=== PATIENT | female | born 1945 | race American Indian/Alaskan Native ===

== ENCOUNTER 2017-10-12 21:13 | Observation (INO) | payer MEDICARE, BC ==
--- NOTE | 2017-10-12 23:37 | C.PDOC ---
History Of Present Illness Patient presents to the ER with a complaint of a burning epigastric pain and cough that began yesterday. Patient is currently speaking in complete sentences ; denies nausea, vomiting, chest pain, or SOB. Time Seen by Provider: 10/12/17 23:36 Chief Complaint (Nursing): Abdominal Pain History Per: Patient History/Exam Limitations: no limitations Onset/Duration Of Symptoms: Days Current Symptoms Are (Timing): Still Present Severity: Mild Pain Scale Rating Of: 4 Location Of Pain/Discomfort: Epigastric Radiation Of Pain To:: None Quality Of Discomfort: Burning Associated Symptoms: denies: Nausea, Vomiting, Other (Chest pain, SOB) Exacerbating Factors: None Alleviating Factors: None Recent travel outside of the [place]: No Abnormal Vaginal Bleeding: No Past Medical History Reviewed: Historical Data, Nursing Documentation, Vital Signs Vital Signs: Last Vital Signs Temp 98.8 F 10/13/17 01:06 Pulse 94 H 10/13/17 01:06 Resp 20 10/13/17 01:06 BP 125/76 10/13/17 01:06 Pulse Ox 97 10/13/17 01:06 - Medical History PMH: Bronchitis, HTN, Hypercholesterolemia - [facility] Procedures ENDOSC POLYPECTOMY OF LG INTEST (01/12/06) Family History: States: No Known Family Hx - Social History Hx Alcohol Use: No Hx Substance Use: No - Immunization History Hx Tetanus Toxoid Vaccination: No Hx Influenza Vaccination: No Hx Pneumococcal Vaccination: No Review Of Systems Cardiovascular: Negative for: Chest Pain Respiratory: Positive for: Cough. Negative for: Shortness of Breath Gastrointestinal: Positive for: Abdominal Pain. Negative for: Nausea, Vomiting Physical Exam - Physical Exam Appears: Non-toxic Skin: Warm, Dry Head: Normacephalic Oral Mucosa: Moist Chest: Symmetrical Cardiovascular: Rhythm Regular Respiratory: No Rales, Rhonchi (At bases), No Wheezing Gastrointestinal/Abdominal: Soft, Tenderness (Epigastric), No Guarding, No Rebound Neurological/Psych: Oriented x3 ED Course And Treatment - Laboratory Results Result Diagrams: 10/12/17 23:51 10/12/17 23:51 O2 Sat by Pulse Oximetry: 97 (Room air) Pulse Ox Interpretation: Normal Progress Note: CXR, EKG, blood work, and urinalysis ordered. Pepcid and nebulizer treatment administered. Disposition Discussed With : Rick Blas Comment: accepted the pt on his service and took over the care at 1:37 AM Counseled Patient/Family Regarding: Studies Performed, Diagnosis - Disposition Disposition: HOSPITALIZED Disposition Time: 23:37 Condition: FAIR Forms: [facility] (Liberian) - Clinical Impression Clinical Impression: Chest pain - Scribe Statement The provider has reviewed the documentation as recorded by the Scribe Frankie Hou All medical record entries made by the Scribe were at my direction and personally dictated by me. I have reviewed the chart and agree that the record accurately reflects my personal performance of the history, physical exam, medical decision making, and the department course for this patient. I have also personally directed, reviewed, and agree with the discharge instructions and disposition.
[2017-10-12 23:54] LABS: BASO # 0.1 K/uL (0.0-0.2); BASO % 0.8 % (0.0-2.0); EOS # 0.3 K/uL (0.0-0.7); HEMATOCRIT 38.4 % (34.0-47.0); LYMPH # 1.6 K/uL (1.0-4.3); MEAN CORPUSCULAR HEMOGLOBIN 24.4 pg (27.0-31.0); MEAN CORPUSCULAR HGB CONC 32.5 g/dL (33.0-37.0); MEAN PLATELET VOLUME 8.5 fL (7.2-11.7); MONO # 0.5 K/uL (0.0-0.8); MONO % 5.7 % (0.0-10.0); RED CELL DISTRIBUTION WIDTH 14.6 % (11.5-14.5); WHITE BLOOD COUNT 8.1 K/uL (4.8-10.8)
[2017-10-12] MEDS ORDERED: Albuterol-Ipratrop 3 mg / 0.5 (3 ml) UD ONE ×2 (23:54→23:55)
[2017-10-13 00:09] LABS: ALB/GLOB RATIO 1.4 (1.0-2.1); ALKALINE PHOSPHATASE 94 U/L (38-126); ALT/SGPT 34 U/L (9-52); AST/SGOT 23 U/L (14-36); BILIRUBIN,TOTAL 0.9 mg/dL (0.2-1.3); BLOOD UREA NITROGEN 13 mg/dL (7-17); CALCIUM 9.2 mg/dl (8.6-10.4); CARBON DIOXIDE 27 mmol/L (22-30); CHLORIDE 99 mmol/L (98-107); GFR AFRICAN-AMERICAN > 60; GLUCOSE,RANDOM 85 mg/dL (65-105); POTASSIUM 3.6 mmol/L (3.6-5.2); SODIUM 138 mmol/L (132-148); TOTAL PROTEIN 7.5 g/dL (6.3-8.3)
[2017-10-13] MEDS: Albuterol-Ipratrop 3 mg / 0.5 (3 ml) UD IH SCH ×2 (00:15)
[2017-10-13 00:24] LABS: RBC URINE 2 /hpf (0-3); URINE BACTERIA RARE (<OCC); URINE BILIRUBIN NEGATIVE (NEGATIVE); URINE BLOOD NEGATIVE (NEGATIVE); URINE COLOR Yellow (YELLOW); URINE GLUCOSE (UA) NORMAL (Normal); URINE KETONE NEGATIVE (NEGATIVE); URINE LEUKOCYTE ESTERASE TRACE Leu/uL (Negative); URINE PROTEIN NEGATIVE (NEGATIVE); WBC URINE 3 /hpf (0-5)
--- NOTE | 2017-10-13 08:35 | RAD ---
PROCEDURE: CHEST RADIOGRAPH, 1 VIEW HISTORY: Abdominal pain COMPARISON: None available. FINDINGS: LUNGS: Mild venous congestion. Patchy increased markings at the left lung base with small left pleural effusion. Bibasilar breast shadows. Upper lobe granulomatous changes. PLEURA: No pneumothorax or pleural fluid seen. CARDIOVASCULAR: Cardiomegaly. Tortuous ectatic aorta. OSSEOUS STRUCTURES: No significant abnormalities. VISUALIZED UPPER ABDOMEN: Normal. OTHER FINDINGS: None. IMPRESSION: Mild venous congestion. Patchy increased markings at the left lung base with small left pleural effusion. Bibasilar breast shadows. Upper lobe granulomatous changes. Cardiomegaly. Tortuous ectatic aorta.
--- NOTE | 2017-10-13 17:38 | CARD ---
APPROVED REPORT EXAM: Two-dimensional and M-mode echocardiogram with Doppler and color Doppler. Other Information Quality : GoodRhythm : INDICATION Dyspnea Chest Pain RISK FACTORS Hypertension Hyperlipidemia 2D DIMENSIONS IVSd0.8 (0.7-1.1cm)LVDd4.2 (3.9-5.9cm) PWd0.8 (0.7-1.1cm)LVDs2.6 (2.5-4.0cm) FS (%) 39.0 %LVEF (%)69.8 (>50%) M-Mode DIMENSIONS Left Atrium (MM)3.82 (2.5-4.0cm)Aortic Root2.95 (2.2-3.7cm) Aortic Cusp Exc.2.11 (1.5-2.0cm) Mitral Valve MV E Ejbldrof25.8cm/sMV A Fpwnlxcw03.1cm/sE/A ratio0.9 TDI E/Lateral E'0.0E/Medial E'0.0 Tricuspid Valve TR Peak [id number]/sTR Peak Gr.[id number] LEFT VENTRICLE There is normal left ventricular wall thickness. The left ventricular systolic function is normal. The left ventricular ejection fraction is within the normal range. There is normal LV segmental wall motion. Transmitral Doppler flow pattern is Grade I-abnormal relaxation pattern. RIGHT VENTRICLE The right ventricle is normal size. The right ventricular systolic function is normal. ATRIA The left atrium size is normal. The right atrium size is normal. AORTIC VALVE The aortic valve is normal in structure. MITRAL VALVE The mitral valve is normal in structure. TRICUSPID VALVE The tricuspid valve is normal in structure. There is mild tricuspid regurgitation. Right ventricular systolic pressure is estimated at less than 30 mmHg. PULMONIC VALVE The pulmonary valve is normal in structure. GREAT VESSELS The aortic root is mildly enlarged. The IVC is normal in size and collapses >50% with inspiration. PERICARDIAL EFFUSION There is no pericardial effusion. <Conclusion> The left ventricular systolic function is normal. There is normal LV segmental wall motion. Transmitral Doppler flow pattern is Grade I-abnormal relaxation pattern. The right ventricular systolic function is normal. There is mild tricuspid regurgitation. Right ventricular systolic pressure is estimated at less than 30 mmHg. The aortic root is mildly enlarged. There is no pericardial effusion.
--- NOTE | 2017-10-13 19:41 | CARD ---
APPROVED REPORT EKG Measurement Heart [id number] <Conclusion> Normal sinus rhythm Minimal voltage criteria for LVH, may be normal variant Borderline ECG
--- NOTE | 2017-10-13 21:43 | CP.PCM.HP ---
History of Present Illness - History of Present Illness History of Present Illness: Chief complaint: epigastric pain History present illness: 72-year-old female with history of hypertension, hypercholesterolemia, history of anemia and transfusion history in the past, cancer breast diagnosed in 2013, received chemotherapy and radiation therapy, currently on maintenance medication. Pt came to ER with c/o epigastric pain and chest pain. pt noticed the symptoms last night and associated with burping. pain over epigastric and pain radiates to midsternal region. No sob, no nausea, no palpitations now pain is better. able to walk and doing well. Past medical history: Hypertension, hypercholesterolemia, anemia, history of bronchitis in the past, cancer breast Past surgical history: Left breast lumpectomy in 2013, hysterectomy, history of radiation therapy and chemotherapy. Family history: Father secondary to stroke Mother had a history of breast cancer at the age of 45 Siblings are healthy Social history: Patient is a nonalcoholic, non-smoker. She drinks coffee occasionally. 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 Review of systems: Patient is generally feeling well, occasional headache noted. No sinus symptoms. Patient has no chest pain or shortness of breath. No GI symptoms currently. Patient had a colonoscopy on December 04, 2011, showed evidence of polyps removed. Patient is being followed up by [facility] for the breast cancer. Patient is usually refusing pneumococcal and flu shot On examination: Temp Pulse Resp BP Pulse Ox 98 F 74 20 109/57 L 95 10/13/17 16:00 10/13/17 16:25 10/13/17 16:00 10/13/17 16:00 10/13/17 16:00 HEENT PERRLA, neck supple No thyromegaly was noted and no cervical adenopathy noted Chest bilateral good air entry, no wheezing or rales noted CVS regular heart sound, no murmur Abdomen soft and no organomegaly Extremities no pedal edema, no leg swelling, pedal pulses are good. HEDIS COORDINATOR alert awake oriented x3 no functional neurological deficit labs noted 10/12/17 23:51 10/12/17 23:51 Assessment/recommendation: 69-year-old female with history of hypertension currently controlled with medication. Hypercholesterolemia on medication stable. History of anemia transfusion in the past. History of breast cancer, on treatment currently. now admitted with chest pain and epigastric pain less likly cardiac gastritis PPI cardio clearence echo will f/u Present on Admission - Present on Admission Any Indicators Present on Admission: No History of DVT/PE: No History of Uncontrolled Diabetes: No Urinary Catheter: No Decubitus Ulcer Present: No Past Patient History - Past Social History Smoking Status: Never Smoked - CARDIAC Hx Hypercholesterolemia: Yes Hx Hypertension: Yes - PULMONARY Hx Bronchitis: Yes - HEMATOLOGICAL/ONCOLOGICAL Hx Cancer: Yes (left breast) - MUSCULOSKELETAL/RHEUMATOLOGICAL Hx Falls: No - PSYCHIATRIC Hx Substance Use: No - SURGICAL HISTORY Hx Surgeries: Yes Other/Comment: left breast lumpectomy 03/2013 Meds Allergies/Adverse Reactions: Allergies Allergy/AdvReac Type Severity Reaction Status Date / Time No Known Allergies Allergy Verified 10/12/17 22:15 Results - Vital Signs Recent Vital Signs: Last Vital Signs Temp 98 F 10/13/17 16:00 Pulse 74 10/13/17 16:25 Resp 20 10/13/17 16:00 BP 109/57 L 10/13/17 16:00 Pulse Ox 95 10/13/17 16:00 - Labs Result Diagrams: 10/12/17 23:51 10/12/17 23:51 Labs: Laboratory Results - last 24 hr 10/12/17 10/12/17 10/12/17 23:51 23:51 23:51 WBC 8.1 RBC 5.12 Hgb 12.5 Hct 38.4 MCV 75.0 L MCH 24.4 L MCHC 32.5 L RDW 14.6 H Plt Count 226 MPV 8.5 Neut % (Auto) 69.5 Lymph % (Auto) 20.0 [place] % (Auto) 5.7 Eos % (Auto) 4.0 Baso % (Auto) 0.8 Neut # 5.6 Lymph # 1.6 [place] # 0.5 Eos # 0.3 Baso # 0.1 Sodium 138 Potassium 3.6 Chloride 99 Carbon Dioxide 27 Anion Gap 16 BUN 13 Creatinine 0.8 Est GFR ( Amer) > 60 Est GFR (Non-Af Amer) > 60 Random Glucose 85 Calcium 9.2 Total Bilirubin 0.9 AST 23 ALT 34 Alkaline Phosphatase 94 Total Creatine Kinase CK-MB (Mass) Troponin I < 0.0120 Total Protein 7.5 Albumin 4.4 Globulin 3.1 Albumin/Globulin Ratio 1.4 Lipase 71 Urine Color Yellow Urine Clarity Hazy Urine pH 7.0 Ur Specific [place] 1.015 Urine Protein Negative Urine Glucose (UA) Normal Urine Ketones Negative Urine Blood Negative Urine Nitrate Negative Urine Bilirubin Negative Urine Urobilinogen 2.0 H Ur Leukocyte Esterase Trace Urine WBC (Auto) 3 Urine RBC (Auto) 2 Ur Squamous Epith Cells 12 H Amorphous Sediment Rare H Urine Bacteria Rare 10/13/17 10/13/17 11:53 17:14 WBC RBC Hgb Hct MCV MCH MCHC RDW Plt Count MPV Neut % (Auto) Lymph % (Auto) [place] % (Auto) Eos % (Auto) Baso % (Auto) Neut # Lymph # [place] # Eos # Baso # Sodium Potassium Chloride Carbon Dioxide Anion Gap BUN Creatinine Est GFR ( Amer) Est GFR (Non-Af Amer) Random Glucose Calcium Total Bilirubin AST ALT Alkaline Phosphatase Total Creatine Kinase 57 57 CK-MB (Mass) < 0.22 < 0.22 Troponin I < 0.0120 < 0.0120 Total Protein Albumin Globulin Albumin/Globulin Ratio Lipase Urine Color Urine Clarity Urine pH Ur Specific [place] Urine Protein Urine Glucose (UA) Urine Ketones Urine Blood Urine Nitrate Urine Bilirubin Urine Urobilinogen Ur Leukocyte Esterase Urine WBC (Auto) Urine RBC (Auto) Ur Squamous Epith Cells Amorphous Sediment Urine Bacteria
[2017-10-14 00:49] VITALS: O2SAT 96
[2017-10-14 08:00] VITALS: BP 114/72; PULSE 76; RESP 20; TEMP 97.9
--- NOTE | 2017-10-14 08:27 | CP.PCM.CON ---
History of Present Illness - History of Present Illness History of Present Illness: Patient seen and evaluated Atypical chest pain. Non exertional Trop x 3 negative Not too many risk factors. Cardiac point of view cleared for discharge f/u as out patient for stress test Past Patient History - Past Social History Smoking Status: Never Smoked - CARDIAC Hx Hypercholesterolemia: Yes Hx Hypertension: Yes - PULMONARY Hx Bronchitis: Yes - HEMATOLOGICAL/ONCOLOGICAL Hx Cancer: Yes (left breast) - MUSCULOSKELETAL/RHEUMATOLOGICAL Hx Falls: No - PSYCHIATRIC Hx Substance Use: No - SURGICAL HISTORY Hx Surgeries: Yes Other/Comment: left breast lumpectomy 03/2013 Meds Allergies/Adverse Reactions: Allergies Allergy/AdvReac Type Severity Reaction Status Date / Time No Known Allergies Allergy Verified 10/12/17 22:15 - Medications Medications: Current Medications Aspirin (Aspirin) 325 mg PO DAILY [facility] Stop: 10/14/17 10:01 Last Admin: 10/13/17 09:11 Dose: 325 mg Home Med (Patient's Own Medication) 1 tab PO DAILY [facility] Losartan Potassium (Cozaar) 25 mg PO DAILY [facility] Pneumococcal Polyvalent Vaccine (Pneumovax 23 Vaccine) 0.5 ml IM .ONCE ONE Stop: 10/15/17 14:01 Rosuvastatin Calcium (Crestor) 10 mg PO HS ANDRE Last Admin: 10/13/17 21:56 Dose: 10 mg Results - Vital Signs Recent Vital Signs: Last Vital Signs Temp 97.9 F 10/14/17 07:59 Pulse 76 10/14/17 07:59 Resp 20 10/14/17 07:59 BP 114/72 10/14/17 07:59 Pulse Ox 96 10/14/17 07:59 - Labs Result Diagrams: 10/12/17 23:51 10/12/17 23:51 Labs: Laboratory Results - last 24 hr 10/13/17 10/13/17 11:53 17:14 Total Creatine Kinase 57 57 CK-MB (Mass) < 0.22 < 0.22 Troponin I < 0.0120 < 0.0120
--- NOTE | 2017-10-14 08:41 | CP.PCM.DIS ---
Provider - Provider Date of Admission: 10/13/17 01:33 Attending physician: Rick Blas MD Time Spent in preparation of Discharge (in minutes): 45 Hospital Course - Lab Results Lab Results: Most Recent Lab Values WBC 8.1 K/uL (4.8-10.8) 10/12/17 23:51 RBC 5.12 Mil/uL (3.80-5.20) 10/12/17 23:51 Hgb 12.5 g/dL (11.0-16.0) 10/12/17 23:51 Hct 38.4 % (34.0-47.0) 10/12/17 23:51 MCV 75.0 fL (81.0-99.0) L 10/12/17 23:51 MCH 24.4 pg (27.0-31.0) L 10/12/17 23:51 MCHC 32.5 g/dL (33.0-37.0) L 10/12/17 23:51 RDW 14.6 % (11.5-14.5) H 10/12/17 23:51 Plt Count 226 K/uL (130-400) 10/12/17 23:51 MPV 8.5 fL (7.2-11.7) 10/12/17 23:51 Neut % (Auto) 69.5 % (50.0-75.0) 10/12/17 23:51 Lymph % (Auto) 20.0 % (20.0-40.0) 10/12/17 23:51 [place] % (Auto) 5.7 % (0.0-10.0) 10/12/17 23:51 Eos % (Auto) 4.0 % (0.0-4.0) 10/12/17 23:51 Baso % (Auto) 0.8 % (0.0-2.0) 10/12/17 23:51 Neut # 5.6 K/uL (1.8-7.0) 10/12/17 23:51 Lymph # 1.6 K/uL (1.0-4.3) 10/12/17 23:51 [place] # 0.5 K/uL (0.0-0.8) 10/12/17 23:51 Eos # 0.3 K/uL (0.0-0.7) 10/12/17 23:51 Baso # 0.1 K/uL (0.0-0.2) 10/12/17 23:51 Sodium 138 mmol/L (132-148) 10/12/17 23:51 Potassium 3.6 mmol/L (3.6-5.2) 10/12/17 23:51 Chloride 99 mmol/L (98-107) 10/12/17 23:51 Carbon Dioxide 27 mmol/L (22-30) 10/12/17 23:51 Anion Gap 16 (10-20) 10/12/17 23:51 BUN 13 mg/dL (7-17) 10/12/17 23:51 Creatinine 0.8 mg/dL (0.7-1.2) 10/12/17 23:51 Est GFR ( Amer) > 60 10/12/17 23:51 Est GFR (Non-Af Amer) > 60 10/12/17 23:51 Random Glucose 85 mg/dL (65-105) 10/12/17 23:51 Calcium 9.2 mg/dl (8.6-10.4) 10/12/17 23:51 Total Bilirubin 0.9 mg/dL (0.2-1.3) 10/12/17 23:51 AST 23 U/L (14-36) 10/12/17 23:51 ALT 34 U/L (9-52) 10/12/17 23:51 Alkaline Phosphatase 94 U/L (38-126) 10/12/17 23:51 Total Creatine Kinase 57 U/L (30-135) 10/13/17 17:14 CK-MB (Mass) < 0.22 ng/mL (0.0-3.38) 10/13/17 17:14 Troponin I < 0.0120 ng/mL (0.00-0.120) 10/13/17 17:14 Total Protein 7.5 g/dL (6.3-8.3) 10/12/17 23:51 Albumin 4.4 g/dL (3.5-5.0) 10/12/17 23:51 Globulin 3.1 gm/dL (2.2-3.9) 10/12/17 23:51 Albumin/Globulin Ratio 1.4 (1.0-2.1) 10/12/17 23:51 Lipase 71 U/L (23-300) 10/12/17 23:51 Urine Color Yellow (YELLOW) 10/12/17 23:51 Urine Clarity Hazy (Clear) 10/12/17 23:51 Urine pH 7.0 (5.0-8.0) 10/12/17 23:51 Ur Specific [place] 1.015 (1.003-1.030) 10/12/17 23:51 Urine Protein Negative mg/dL (NEGATIVE) 10/12/17 23:51 Urine Glucose (UA) Normal mg/dL (Normal) 10/12/17 23:51 Urine Ketones Negative mg/dL (NEGATIVE) 10/12/17 23:51 Urine Blood Negative (NEGATIVE) 10/12/17 23:51 Urine Nitrate Negative (NEGATIVE) 10/12/17 23:51 Urine Bilirubin Negative (NEGATIVE) 10/12/17 23:51 Urine Urobilinogen 2.0 mg/dL (0.2-1.0) H 10/12/17 23:51 Ur Leukocyte Esterase Trace [place]/uL (Negative) 10/12/17 23:51 Urine WBC (Auto) 3 /hpf (0-5) 10/12/17 23:51 Urine RBC (Auto) 2 /hpf (0-3) 10/12/17 23:51 Ur Squamous Epith Cells 12 /hpf (0-5) H 10/12/17 23:51 Amorphous Sediment Rare /ul (<OCC) H 10/12/17 23:51 Urine Bacteria Rare (<OCC) 10/12/17 23:51 - Hospital Course Hospital Course: Chief complaint: epigastric pain History present illness: 72-year-old female with history of hypertension, hypercholesterolemia, history of anemia and transfusion history in the past, cancer breast diagnosed in 2012, received chemotherapy and radiation therapy, currently on maintenance medication. Pt came to ER with c/o epigastric pain and chest pain. pt noticed the symptoms last night and associated with burping. pain over epigastric and pain radiates to midsternal region. No sob, no nausea, no palpitations now pain is better. able to walk and doing well. Past medical history: Hypertension, hypercholesterolemia, anemia, history of bronchitis in the past, cancer breast Past surgical history: Left breast lumpectomy in 2013, hysterectomy, history of radiation therapy and chemotherapy. Family history: Father secondary to stroke Mother had a history of breast cancer at the age of 45 Siblings are healthy Social history: Patient is a nonalcoholic, non-smoker. She drinks coffee occasionally. 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 Review of systems: Patient is generally feeling well, occasional headache noted. No sinus symptoms. Patient has no chest pain or shortness of breath. No GI symptoms currently. Patient had a colonoscopy on December 04, 2011, showed evidence of polyps removed. Patient is being followed up by [facility] for the breast cancer. Patient is usually refusing pneumococcal and flu shot On examination: Temp Pulse Resp BP Pulse Ox 98 F 74 20 109/57 L 95 10/13/17 16:00 10/13/17 16:25 10/13/17 16:00 10/13/17 16:00 10/13/17 16:00 HEENT PERRLA, neck supple No thyromegaly was noted and no cervical adenopathy noted Chest bilateral good air entry, no wheezing or rales noted CVS regular heart sound, no murmur Abdomen soft and no organomegaly Extremities no pedal edema, no leg swelling, pedal pulses are good. LOGGING TRACTOR OPERATOR SWAMP alert awake oriented x3 no functional neurological deficit labs noted 10/12/17 23:51 10/12/17 23:51 Assessment/recommendation: 69-year-old female with history of hypertension currently controlled with medication. Hypercholesterolemia on medication stable. History of anemia transfusion in the past. History of breast cancer, on treatment currently. now admitted with chest pain and epigastric pain less likly cardiac gastritis PPI cardio clearence echo will f/u had echo today pt feeling good no chest pain now no epigastric pain will plan d/c home today f/u as op in one week she will continue all the meds from home if pain recurs may need endoscopy f/u cardiology as OP Discharge Plan - Follow Up Plan Condition: FAIR Disposition: HOME/ ROUTINE
[2017-10-14] MEDS ORDERED: Influenza Vaccine 60 mcg/0.5 mL SYR (4YR UP) IM ONE ×2 (08:48→10:00)
[2017-10-14] MEDS ORDERED: LETROZOLE 2.5 MG PO SCH (10:00)
[2017-10-14] MEDS ORDERED: Pneumococcal 23-Valent Vaccine IM ONE (10:00)
[2017-10-15] MEDS ORDERED: Pneumococcal 23-Valent Vaccine IM ONE (14:00)
== END 2017-10-14 12:21 | disposition home or self-care (01) ==
LOC: C.ER 21:13 → C.5S 10-13 01:33
PROVIDERS: ADMIT Internal Medicine; ATTEND Internal Medicine
DX: K29.70 Gastritis, unspecified, without bleeding (principal); R07.89 Other chest pain; I10 Essential (primary) hypertension; E78.00 Pure hypercholesterolemia, unspecified; Z85.3 Personal history of malignant neoplasm of breast; Z90.710 Acquired absence of both cervix and uterus; Z92.21 Personal history of antineoplastic chemotherapy; Z92.3 Personal history of irradiation
CPT/HCPCS: 36415; 71010; 80053; 81001; 83690; 84484; 85025; 90674; 90732; 93005; 93306; 96374; 99285; G0008; G0009; G0378

== ENCOUNTER 2018-10-16 01:38 | Emergency (ER) | payer MEDICARE, BC ==
--- NOTE | 2018-10-16 02:16 | C.PDOC ---
History Of Present Illness 73 year old female presents to the ER with a complaint of abdominal pain and hematuria associated with nausea and vomiting that began tonight. Patient states she was told 6 years ago she had prolapse, but no intervention was needed at the time. She has not taken anything for the pain. Denies dysuria, fever, diarrhea, or constipation. Time Seen by Provider: 10/16/18 02:02 Chief Complaint (Nursing): Abdominal Pain History Per: Patient History/Exam Limitations: no limitations Onset/Duration Of Symptoms: Hrs Current Symptoms Are (Timing): Still Present Location Of Pain/Discomfort: Suprapubic Radiation Of Pain To:: None Quality Of Discomfort: Unable To Describe Associated Symptoms: Nausea, Vomiting, Urinary Symptoms (Hematuria, no dysuria). denies: Fever, Diarrhea, Constipation Exacerbating Factors: None Alleviating Factors: None Recent travel outside of the [place]: No Abnormal Vaginal Bleeding: No Past Medical History Reviewed: Historical Data, Nursing Documentation, Vital Signs Vital Signs: Last Vital Signs Temp 98.3 F 10/16/18 01:56 Pulse 102 H 10/16/18 01:56 Resp 20 10/16/18 01:56 BP 144/98 H 10/16/18 01:56 Pulse Ox 98 10/16/18 01:56 - Medical History PMH: Bronchitis, HTN, Hypercholesterolemia - [facility] Procedures ENDOSC POLYPECTOMY OF LG INTEST (01/12/06) Family History: States: No Known Family Hx - Social History Hx Alcohol Use: No Hx Substance Use: No - Immunization History Hx Tetanus Toxoid Vaccination: No Hx Influenza Vaccination: No Hx Pneumococcal Vaccination: No Review Of Systems Constitutional: Negative for: Fever, Chills Gastrointestinal: Positive for: Nausea, Vomiting, Abdominal Pain. Negative for: Diarrhea, Constipation Genitourinary: Positive for: Hematuria. Negative for: Dysuria Physical Exam - Physical Exam Appears: Non-toxic Skin: Normal Color, Warm, Dry Head: Atraumatic, Normacephalic Eye(s): bilateral: Normal Inspection Oral Mucosa: Moist Chest: Symmetrical, No Tenderness Cardiovascular: Rhythm Regular Respiratory: Normal Breath Sounds, No Rales, No Rhonchi, No Wheezing Gastrointestinal/Abdominal: Soft, No Tenderness Back: No CVA Tenderness Neurological/Psych: Oriented x3, Normal Speech ED Course And Treatment O2 Sat by Pulse Oximetry: 98 Medical Decision Making Medical Decision Making: Urinalysis ordered, results were positive for blood and WBCs. Patient is resting comfortably in the ER in no acute distress, vitals are stable, will discharge home with Rx and instructions to follow up with PMD or mathematical engineer. Disposition Counseled Patient/Family Regarding: Diagnosis, Need For Followup, Rx Given - Disposition Disposition: HOME/ ROUTINE Disposition Time: 03:15 Condition: GOOD Additional Instructions: Take antibiotic twice daily and be sure to finish taking all of antibiotic. Drink plenty of fluids. Follow up with your doctor or mathematical engineer upon completion of medicine to check the infection has cleared Prescriptions: Sulfamethoxazole/Trimethoprim [Bactrim DS 800 mg-160 mg] 1 tab PO BID #14 tab Instructions: Acute Cystitis (DC) Forms: Loop (Czech) - POA Present On Arrival: None - Clinical Impression Clinical Impression: Cystitis - PA / ROLLER CHECKER / Resident Statement MD/DO has reviewed & agrees with the documentation as recorded. - Scribe Statement The provider has reviewed the documentation as recorded by the Scribluigi Hou All medical record entries made by the Eli were at my direction and personally dictated by me. I have reviewed the chart and agree that the record accurately reflects my personal performance of the history, physical exam, medic al decision making, and the department course for this patient. I have also personally directed, reviewed, and agree with the discharge instructions and disposition.
[2018-10-16 02:36] LABS: SQUAMOUS EPITHIAL 2 /hpf (0-5); URINE BACTERIA RARE (<OCC); URINE BILIRUBIN NEGATIVE (NEGATIVE); URINE BLOOD 3+ (NEGATIVE); URINE CLARITY Hazy (Clear); URINE COLOR Straw (YELLOW); URINE GLUCOSE (UA) NORMAL (Normal); URINE LEUKOCYTE ESTERASE NEG Leu/uL (Negative); URINE PROTEIN NEGATIVE (NEGATIVE); URINE UROBILINOGEN NORMAL mg/dL (0.2-1.0)
[2018-10-16] MEDS ORDERED: Tmp-Smz 800 mg-160 mg DS Tab PO STA (03:01)
[2018-10-16] MEDS ORDERED: Tmp-Smz 800 mg-160 mg DS Tab ONE (03:23)
[2018-10-16 03:30] VITALS: BP 150/87; PULSE 86; RESP 18; TEMP 98.5
[2018-10-16 04:36] VITALS: O2SAT 98
== END 2018-10-16 03:31 | disposition home or self-care (01) ==
LOC: C.ER 01:38
DX: N30.91 Cystitis, unspecified with hematuria (principal)

== ENCOUNTER 2018-10-30 00:18 | Emergency (ER) | payer MEDICARE, BC ==
[2018-10-30] MEDS ORDERED: Sodium Chloride 0.9% 1,000 ML IV ONE (00:31)
--- NOTE | 2018-10-30 00:31 | C.PDOC ---
History Of Present Illness Patient presents to the ER with a complaint of nausea, vomiting and suprapubic discomfort. Patient was being treated for UTI, she finished her course of antibiotics but has not been able to tolerate PO. Denies fever or chills. Time Seen by Provider: 10/30/18 00:31 Chief Complaint (Nursing): Abdominal Pain History Per: Patient History/Exam Limitations: no limitations Onset/Duration Of Symptoms: Hrs Current Symptoms Are (Timing): Still Present Severity: Moderate Pain Scale Rating Of: 4 Location Of Pain/Discomfort: Suprapubic Radiation Of Pain To:: None Quality Of Discomfort: Unable To Describe Associated Symptoms: Nausea, Vomiting. denies: Fever, Chills Exacerbating Factors: None Alleviating Factors: None Recent travel outside of the [place]: No Abnormal Vaginal Bleeding: No Past Medical History Reviewed: Historical Data, Nursing Documentation, Vital Signs Vital Signs: Last Vital Signs Temp 98.4 F 10/30/18 00:21 Pulse 94 H 10/30/18 00:21 Resp 14 10/30/18 00:21 BP 153/73 H 10/30/18 00:21 Pulse Ox 97 10/30/18 00:21 - Medical History PMH: Bronchitis, HTN, Hypercholesterolemia Denies: Chronic Kidney Disease - [facility] Procedures ENDOSC POLYPECTOMY OF LG INTEST (01/12/06) Family History: States: No Known Family Hx - Social History Hx Alcohol Use: No Hx Substance Use: No - Immunization History Hx Tetanus Toxoid Vaccination: No Hx Influenza Vaccination: Yes Hx Pneumococcal Vaccination: No Review Of Systems Constitutional: Negative for: Fever, Chills Cardiovascular: Negative for: Chest Pain, Palpitations Respiratory: Negative for: Cough, Shortness of Breath Gastrointestinal: Positive for: Nausea, Vomiting, Abdominal Pain (Suprapubic) Neurological: Negative for: Weakness, Numbness Physical Exam - Physical Exam Appears: Non-toxic Skin: Warm, Dry Head: Normacephalic Oral Mucosa: Moist Chest: Symmetrical, No Tenderness Cardiovascular: Rhythm Regular Respiratory: No Rales, No Rhonchi, No Wheezing Gastrointestinal/Abdominal: Soft, Tenderness (Suprapubic), No Guarding, No Rebound Back: No CVA Tenderness Neurological/Psych: Oriented x3 ED Course And Treatment - Laboratory Results Result Diagrams: 10/30/18 00:39 10/30/18 00:39 ECG: Interpreted By Me, Viewed By Me ECG Rhythm: Sinus Rhythm (84), Nonspecific Changes O2 Sat by Pulse Oximetry: 97 (Room air) Pulse Ox Interpretation: Normal Progress Note: Blood work, EKG, cultures, and urinalysis ordered. Pepcid, zofran, and IV fluids administered. Disposition Counseled Patient/Family Regarding: Studies Performed, Diagnosis, Need For Followup, Rx Given - Disposition Referrals: Rick Blas MD [Staff Provider] - Disposition: HOME/ ROUTINE Disposition Time: 00:31 Condition: FAIR Additional Instructions: Please return if symptoms recur Prescriptions: Nitrofurantoin Macrocrystals [Macrobid] 1 cap PO BID #14 cap Instructions: Blood in the Urine (Hematuria), Adult (DC), Renal Colic (DC) Forms: [employer] (Greenlandic) - Clinical Impression Clinical Impression: Hematuria, Kidney stone on left side, Renal colic on left side - Scribe Statement The provider has reviewed the documentation as recorded by the Scribe Frankie Hou All medical record entries made by the Scribe were at my direction and personally dictated by me. I have reviewed the chart and agree that the record accurately reflects my personal performance of the history, physical exam, medical decision making, and the department course for this patient. I have also personally directed, reviewed, and agree with the discharge instructions and d isposition.
[2018-10-30 00:44] LABS: BASO # 0.1 K/uL (0.0-0.2); BASO % 0.6 % (0.0-2.0); HEMOGLOBIN 12.7 g/dL (11.0-16.0); LYMPH # 0.8 K/uL (1.0-4.3); LYMPH % 8.7 % (20.0-40.0); MEAN CELL VOLUME 76.4 fL (81.0-99.0); MEAN CORPUSCULAR HEMOGLOBIN 25.3 pg (27.0-31.0); MEAN CORPUSCULAR HGB CONC 33.1 g/dL (33.0-37.0); MEAN PLATELET VOLUME 7.9 fL (7.2-11.7); MONO # 0.1 K/uL (0.0-0.8); MONO % 1.1 % (0.0-10.0); NEUT # 8.6 K/uL (1.8-7.0); NEUT % 89.6 % (50.0-75.0); NRBC % 0.1 % (0.0-2.0); PLATELET COUNT 282 K/uL (130-400); RBC 5.04 Mil/uL (3.80-5.20); RED CELL DISTRIBUTION WIDTH 14.7 % (11.5-14.5); WHITE BLOOD COUNT 9.6 K/uL (4.8-10.8)
[2018-10-30 00:47] LABS: SQUAMOUS EPITHIAL 9 /hpf (0-5); URINE AMORPHOUS SEDIMENT RARE /ul (<OCC); URINE BACTERIA RARE (<OCC); URINE BILIRUBIN NEGATIVE (NEGATIVE); URINE BLOOD 2+ (NEGATIVE); URINE CLARITY Hazy (Clear); URINE COLOR Yellow (YELLOW); URINE GLUCOSE (UA) NORMAL (Normal); URINE LEUKOCYTE ESTERASE NEG Leu/uL (Negative); URINE PROTEIN NEGATIVE (NEGATIVE); URINE UROBILINOGEN NORMAL mg/dL (0.2-1.0)
[2018-10-30] MEDS ORDERED: Sodium Chloride 0.9% 1,000 ML ONE (00:49)
[2018-10-30 00:55] LABS: INR 1.1; PROTHROMBIN TIME 12.1 SECONDS (9.7-12.2)
[2018-10-30 00:56] LABS: ALB/GLOB RATIO 1.4 (1.0-2.1); ALBUMIN 4.7 g/dL (3.5-5.0); ALT/SGPT 25 U/L (9-52); AST/SGOT 27 U/L (14-36); BLOOD UREA NITROGEN 22 mg/dL (7-17); CALCIUM 9.9 mg/dl (8.6-10.4); GFR NON-AFRICAN AMERICAN 54; LIPASE 78 U/L (23-300)
[2018-10-30 00:59] LABS: VENOUS BLOOD GAS BASE EXCESS 4.3 mmol/L (0.0-2.0); VENOUS BLOOD GAS PCO2 47 mmHg (40-60); VENOUS BLOOD GAS PO2 30 mm/Hg (30-55); VENOUS BLOOD PH 7.41 (7.32-7.43)
[2018-10-30 01:07] LABS: LYMPHOCYTE 8 % (20-40); MONOCYTE 1 % (0-10); NEUTROPHIL 88 % (50-75); PLATELET ESTIMATE NORMAL (NORMAL); REACTIVE LYMPHOCYTES 3 % (0-0); TOTAL CELLS COUNTED 100
[2018-10-30 01:08] LABS: ANISOCYTOSIS MODERATE; MICROCYTOSIS MODERATE
[2018-10-30 01:09] LABS: OVALOCYTES MODERATE
[2018-10-30] MEDS ORDERED: Iodixanol 320 MG/ML 100 ML BOTTLE IV ONE (01:26)
[2018-10-30 04:22] VITALS: BP 126/70; PULSE 90; RESP 18; TEMP 98.5; O2SAT 98
--- NOTE | 2018-10-30 11:09 | CT ---
Date of service: 10/30/2018 PROCEDURE: CT Abdomen and Pelvis with contrast HISTORY: abd pain, hematuria COMPARISON: None available. TECHNIQUE: CT scan of the abdomen and pelvis was performed after administration of intravenous contrast. Oral contrast was not administered. Coronal and sagittal reformatted images were obtained. Contrast dose: 100 mL Visipaque 320 Radiation dose: Total exam DLP = 721.56 mGy-cm. This CT exam was performed using one or more of the following dose reduction techniques: Automated exposure control, adjustment of the mA and/or kV according to patient size, and/or use of iterative reconstruction technique. FINDINGS: LOWER THORAX: There is subsegmental atelectasis in the lung bases. LIVER: Normal in size with homogeneous enhancement. There is a 1.1 mm simple cyst in the left hepatic lobe. No ductal dilatation. GALLBLADDER AND BILE DUCTS: Well distended. No calcified gallstones, wall thickening or pericholecystic fluid. PANCREAS: Normal in size with homogeneous enhancement. No gross lesion or ductal dilatation. SPLEEN: Normal in size and appearance. ADRENALS: No discrete nodule. KIDNEYS AND URETERS: The right kidney is normal in size and there is homogeneous enhancement without hydronephrosis or nephrolithiasis. Few tiny low-attenuation areas a too small to characterize by CT criteria. There is a 3 mm obstructing stone at the left UV junction with mild hydroureteronephrosis and perinephric fat stranding. There is a punctate nonobstructing stones in the the left kidney. There are few simple cortical cysts in the left kidney. VASCULATURE: No aortic aneurysm. BOWEL: Evaluation of the bowel is limited in the absence of oral contrast. The small bowel loops are normal in caliber. The colon is grossly normal in appearance. No bowel wall thickening or obstruction. APPENDIX: Normal appendix. PERITONEUM: No free fluid. No free air. LYMPH NODES: No enlarged lymph nodes. BLADDER: Well distended and normal in appearance. REPRODUCTIVE: The uterus is surgically absent. BONES: No acute fracture. Within normal limits for the patient's age. OTHER FINDINGS: There is a small sliding hiatal hernia. IMPRESSION: Mild left obstructive uropathy resulting from a 3 mm stone at the UV junction. Small nonobstructing stones in the left kidney. A preliminary report was provided by [facility].
--- NOTE | 2018-11-01 15:08 | CARD ---
APPROVED REPORT Date of service: 10/30/2018 EKG Measurement Heart [id number] <Conclusion> Normal sinus rhythm Normal ECG
== END 2018-10-30 04:23 | disposition home or self-care (01) ==
LOC: C.ER 00:18
DX: N20.0 Calculus of kidney (principal); N23 Unspecified renal colic; R31.9 Hematuria, unspecified; E78.00 Pure hypercholesterolemia, unspecified; I10 Essential (primary) hypertension
CPT/HCPCS: 74177; 80053; 81001; 82803; 83690; 85025; 85610; 85730; 87040; 87086; 93005; 96374; 96375; 99284; J2405; J7030; Q9967